=== PATIENT | male | born 1990 | race Two or more races ===

== ENCOUNTER 2023-05-08 03:20 | Emergency (ER) | payer MEDICAID ==
[~2023-05-08] VITALS: Ht 167.6 cm; Wt 74.8 kg
[2023-05-08 05:09] VITALS: BP 134/76; TEMP 98.1; O2SAT 98
== END 2023-05-08 05:24 | disposition home or self-care (01) ==
LOC: ER 03:21
DX: L98.8 Other specified disorders of the skin and subcutaneous tissue (principal); T63.391A Toxic effect of venom of other spider, accidental (unintentional), initial encounter; Y92.89 Other specified places as the place of occurrence of the external cause